=== PATIENT | female | born 2000 | race Caucasian/White ===

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

== ENCOUNTER 2020-11-28 12:35 | Emergency (ER) | payer OTHER ==
[~2020-11-28] VITALS: Ht 167.6 cm; Wt 60.0 kg
[~2020-11-28 12:35] MED LIST changes: -BUPIVACAINE/PF 0.5% ONE; -GADOBUTROL 7.5 MMOL/7.5 ML PFS ONE; -LIDOCAINE-MPF 1%, 5ML ONE; +NORTRIPTYLINE; -ROPivacaine/PF 0.2%, 10 ML ONE
[2020-11-28 13:22] LABS: BASOPHILS % (AUTO) 1 % (0-1); EOSINOPHILS % (AUTO) 1 % (1-7); LYMPHOCYTES % (AUTO) 33 % (22-44); MEAN CORPUSCULAR HEMOGLOBIN 30.2 pg (27.0-34.8); MEAN CORPUSCULAR HGB CONC 33.6 g/dL (32.4-35.8); MEAN PLATELET VOLUME 8.2 fL (7.4-10.4); MONOCYTES % (AUTO) 7 % (2-9); NEUTROPHILS % (AUTO) 59 % (42-75); PLATELET COUNT 256 x10^3/uL (130-400); RED BLOOD COUNT 4.72 x10^6/uL (3.82-5.3); RED CELL DISTRIBUTION WIDTH 13.5 % (9.6-15.2)
[2020-11-28 13:23] LABS: MD NO
[2020-11-28 13:32] LABS: ALBUMIN 3.9 g/dL (3.4-5.0); ANION GAP 4 mmol/L (5-15); CALCIUM 9.6 mg/dL (8.5-10.1); CHLORIDE 107 mmol/L (98-107); CREATININE 0.93 mg/dL (0.55-1.02)
[2020-11-28 18:04] VITALS: BP 127/74
== END 2020-11-28 18:05 | disposition home or self-care (01) ==
LOC: ED 17:32
DX: R07.2 Precordial pain (principal); R06.00 Dyspnea, unspecified; G43.909 Migraine, unspecified, not intractable, without status migrainosus
CPT/HCPCS: 36415; 80048; 82040; 84443; 85025; 85379; 93005; 99284